=== PATIENT | female | born 1965 | race Caucasian/White ===

== ENCOUNTER 2020-04-18 19:14 | Emergency (ER) | payer OTHER ==
[~2020-04-18] VITALS: Ht 160 cm; Wt 77.1 kg
--- NOTE | 2020-04-18 19:32 | NUR ---
PT CAME TO THE ED C/O L 2ND MOLAR PAIN AND FACIAL SWELLING X 1 WEEK. PT ALSO ENDORSES R FLANK PAIN AND URINARY FREQUENCY X 1 WEEK. -BURNING SENSATION. PT AAOX4, VSS, RESPIRATIONS EVEN AND UNLABORED ON RA W/ NAD NOTED. PT CONNECTED TO THE MONITOR AND POX.
[2020-04-18] MEDS ORDERED: KETOROLAC TROMETHAMINE INJ 30 MG/ML VIAL ONE (19:43)
--- NOTE | 2020-04-18 19:50 | NUR ---
URINE COLLECTED AND SENT TO LAB
[2020-04-18] MEDS ORDERED: IV NS 0.9% 1,000 ML BAG IV ONE (20:00)
[2020-04-18] MEDS ORDERED: KETOROLAC TROMETHAMINE INJ 30 MG/ML VIAL IV ONE (20:00)
[2020-04-18 20:09] LABS: APPEARANCE,URINE Clear (CLEAR); BILIRUBIN,URINE Negative (NEGATIVE); BLOOD, URINE Moderate Ery/uL (NEGATIVE); COLOR,URINE Yellow (YELLOW); KETONES,URINE Negative (NEGATIVE); LEUKOCYTE ESTERASE ,URINE Negative (NEGATIVE); NITRITE, URINE Negative (NEGATIVE); PROTEIN,URINE Negative (NEGATIVE); UGLUCOSE Negative (NEGATIVE); UROBILINOGEN,URINE 0.2 EU/dL (0.2)
[2020-04-18 20:26] LABS: BACTERIA,URINE Few /HPF (None Seen); SQUAMOUS EPITHELIAL CELL,UR Few /HPF (None Seen)
[2020-04-18 20:27] LABS: WBC,URINE 0-2 /HPF (0-3)
[2020-04-18 21:48] VITALS: BP 128/68
--- NOTE | 2020-04-18 21:48 | NUR ---
Patient discharged to home in stable condition. Written and verbal after care instructions given. Patient verbalizes understanding of instruction.IV removed. Catheter intact and site benign. Pressure and 4x4 applied to site. No bleeding noted.
== END 2020-04-18 21:49 | disposition home or self-care (01) ==
LOC: ER 19:18
DX: K04.7 Periapical abscess without sinus (principal); K59.00 Constipation, unspecified; F32.9 Major depressive disorder, single episode, unspecified
CPT/HCPCS: 74176; 81001; 96361; 96374; 99284; J1885; J7030; 81000-TC

== ENCOUNTER 2021-09-14 11:44 | Emergency (ER) | payer OTHER ==
[~2021-09-14] VITALS: Ht 162.6 cm; Wt 68.9 kg
[2021-09-14 12:11] VITALS: BP 116/77
[2021-09-14] MEDS ORDERED: GUAIFENESIN/D-METHORPHAN HB 5 ML UDC PO ONE (13:00)
[2021-09-14] MEDS ORDERED: BENZ-13 PO (13:02)
[2021-09-14] MEDS ORDERED: AZIT250T13 PO (13:02)
[2021-09-14] MEDS ORDERED: GUAI1TBM19 PO (13:02)
[2021-09-14] MEDS ORDERED: GUAIFENESIN/D-METHORPHAN HB 5 ML UDC ONE (13:32)
== END 2021-09-14 13:38 | disposition home or self-care (01) ==
LOC: ER 11:48
DX: R05.9 Cough, unspecified (principal); F32.9 Major depressive disorder, single episode, unspecified
CPT/HCPCS: 71045-TC

== ENCOUNTER 2021-11-23 18:49 | Emergency (ER) | payer OTHER ==
[~2021-11-23] VITALS: Ht 160 cm; Wt 77.1 kg
[~2021-11-23 18:49] MED LIST: AZIT250T13 PO; BENZ-13 PO; GUAI1TBM19 PO
--- NOTE | 2021-11-23 19:30 | NUR ---
WORSENING COUGH AND CONGESTION X 3 DAYS. PATIENT ALERT AND ORIENTED X3. AMBULATORY WITH NON LABORED BREATHING IN BED 04 ON MONITOR AWAITING MD JUNG.
--- NOTE | 2021-11-23 19:45 | NUR ---
BLOOD COLLECTED AND SENTT O LAB
--- NOTE | 2021-11-23 19:50 | NUR ---
COVID SWAB DONE AND SENT TO LAB
[2021-11-23] MEDS ORDERED: LORAZEPAM 1 MG TABLET PO ONE (20:30)
[2021-11-23] MEDS ORDERED: LORAZEPAM 1 MG TABLET ONE (20:31)
--- NOTE | 2021-11-23 21:03 | NUR ---
URINE DONE AND SENT TO LAB
[2021-11-23 21:16] LABS: BASOPHILS # (AUTO) 0.1 K/uL (0.0-0.2); BASOPHILS % (AUTO) 0.4 % (0.0-2.0); EOSINOPHILS % (AUTO) 5.5 % (0.0-6.0); HEMATOCRIT 39 % (33-45); HEMOGLOBIN 12.7 g/dL (11.5-14.8); LYMPHOCYTES # (AUTO) 3.3 K/uL (0.8-4.8); MEAN CORPUSCULAR HGB CONC 33 g/dl (31.0-36.0); MEAN CORPUSCULAR VOLUME 87 fL (82-100); MONOCYTES # (AUTO) 0.9 K/uL (0.1-1.30); MONOCYTES % (AUTO) 7.3 % (2.0-12.0); NEUTROPHILS # (AUTO) 7.3 K/uL (1.8-8.9); NEUTROPHILS % (AUTO) 59.8 % (43.0-81.0); PLATELET COUNT (AUTO) 372 K/uL (150-450); WHITE BLOOD COUNT (AUTO) 12.2 K/uL (4.3-11.0)
[2021-11-23 21:17] LABS: BILIRUBIN,URINE NEGATIVE (NEGATIVE); COLOR,URINE YELLOW (YELLOW); LEUKOCYTE ESTERASE ,URINE NEGATIVE (NEGATIVE); NITRITE, URINE NEGATIVE (NEGATIVE); PROTEIN,URINE NEGATIVE (NEGATIVE); UGLUCOSE NEGATIVE (NEGATIVE); UROBILINOGEN,URINE 0.2 EU/dL (0.2)
[2021-11-23 21:39] LABS: CALCIUM, SERUM 8.4 mg/dL (8.5-10.1); CARBON DIOXIDE 27 mmol/L (21-32); CHLORIDE 106 mmol/L (98-107); CREATININE 0.8 mg/dL (0.6-1.3); GLUCOSE 94 mg/dL (74-106); POTASSIUM 4.1 mmol/L (3.5-5.1); SODIUM SERUM 138 mmol/L (136-145); UREA NITROGEN, BLOOD 24 mg/dL (7-18)
[2021-11-23] MEDS ORDERED: IV NS 0.9% 500 ML BAG IV ONE (22:00)
--- NOTE | 2021-11-23 22:52 | NUR ---
HOME CALLED FOR PATIENT PICKUP
--- NOTE | 2021-11-23 23:20 | NUR ---
Patient discharged to home in stable condition. Written and verbal after care instructions given. Patient verbalizes understanding of instruction. IV line removed and pt ambulated out of ER with steady gait
[2021-11-23 23:33] VITALS: BP 130/98
== END 2021-11-23 23:33 | disposition home or self-care (01) ==
LOC: ER 18:49
DX: F41.9 Anxiety disorder, unspecified (principal); R05.9 Cough, unspecified; Z20.822 Contact with and (suspected) exposure to COVID-19; E86.0 Dehydration; Z59.00 Homelessness unspecified; R00.0 Tachycardia, unspecified; Z87.01 Personal history of pneumonia (recurrent)
CPT/HCPCS: 36415; 71045; 80048; 81003; 83880; 84484; 85025; 87426; 93005; 99285; C9803

== ENCOUNTER 2022-08-27 07:26 | Emergency (ER) | payer OTHER ==
[~2022-08-27] VITALS: Ht 160 cm; Wt 74.8 kg
--- NOTE | 2022-08-27 07:55 | NUR ---
C/O COUGH AND CONGESTION X 3 WEEKS. DENIES SOB AND CHEST PAIN. DR. MENDEZ AT BEDSIDE FOR EVAL.
[2022-08-27] MEDS ORDERED: FLUO40CA8 PO (08:03)
[2022-08-27] MEDS ORDERED: BENZ-13 PO (08:03)
[2022-08-27] MEDS ORDERED: MIRT-119 PO (08:03)
[2022-08-27] MEDS ORDERED: IBUP-1957 PO (08:03)
[2022-08-27] MEDS ORDERED: GUAI1TBM19 PO (08:03)
[2022-08-27] MEDS ORDERED: LEVO750T46 PO (08:03)
[2022-08-27 08:14] VITALS: BP 151/71
--- NOTE | 2022-08-27 08:14 | NUR ---
IV removed. Catheter intact and site benign. Pressure and 4x4 applied to site. No bleeding noted.
[2022-08-27] MEDS ORDERED: GABA300C PO (08:28)
== END 2022-08-27 08:15 | disposition home or self-care (01) ==
LOC: ER 07:34
DX: J06.9 Acute upper respiratory infection, unspecified (principal); F32.A Depression, unspecified; F17.200 Nicotine dependence, unspecified, uncomplicated; Z79.899 Other long term (current) drug therapy; Z59.00 Homelessness unspecified